=== PATIENT | female | born 1985 | race Hispanic/Latino ===

== ENCOUNTER 2017-07-14 22:56 | Inpatient (IN) | payer MEDICAID, OTHER, SELFPAY ==
[2017-07-14] MEDS ORDERED: Lidocaine 1% (PF) 30 ML VIAL ONE (23:19)
[2017-07-14] MEDS ORDERED: Oxytocin 10 UNITS/ML VIAL ONE (23:19)
[2017-07-14 23:58] VITALS: BMI 28.3
[2017-07-15] MEDS ORDERED: Ibuprofen 800 MG TAB PO SCH ×2 (00:45→06:00)
--- NOTE | 2017-07-15 00:52 | PDOC.LDHP ---
Labor and Delivery H&P Chief complaint: contractions, loss of fluid HPI: 31 yo at 38.3wks by 14wk ultrasound presents with contractions and SROM. Current gestational age (weeks): 38 (38.3) Due date: 07/24/17 Dating criteria: second trimester ultrasound (14 wks) Grav: 5 Para: 2 (2021) OB History Details: hx of 2 spontaneous abortions (2007, 2010); D&C X 2. hx of 2 (2014, 2011) 2014-precipitous delivery, 2nd degree laceration 2012: gestation diabetes, on glyburide, induced at term. Current complications: none Abnormal US findings: No Past Medical History: Prior hx of gestational diabetes Current medications: pre- vitamins, iron Previous surgical history: none Allergies/Adverse Reactions: Allergies Allergy/AdvReac Type Severity Reaction Status Date / Time No Known Allergies Allergy Verified 07/14/17 23:58 - Physical Exam Vital signs reviewed and normal: yes General: breathing through contractions Heart: RRR Lungs: CTAB Abdomen: gravid - Vaginal Exam cm dilated: 10 Effacement: 100% Station: 2+ - OB Labs Blood type: A RH: positive Antibody Screen: negative HIV: negative RPR: negative HEPSAg: negative 1 hour GCT: positive 3 hour GTT: negative GBS: unknown (completed on ) Urine drug screen: not done Rubella: immune Additional Labs: gonorrhea and chlamydia negative - Assessment L&D Assessment: term patient in labor - Plan Plan: admit to L&D
[2017-07-15] MEDS ORDERED: diphenhydrAMINE 25 MG CAP PO PRN (00:59)
[2017-07-15] MEDS ORDERED: Lanolin Ointment 7 GM TUBE TOP PRN (00:59)
[2017-07-15] MEDS ORDERED: Adacel (T-DAP) 0.5 ML VIAL IM ONE (00:59)
[2017-07-15] MEDS ORDERED: Milk Of Magnesia 30 ML UDCUP PO PRN (00:59)
[2017-07-15] MEDS ORDERED: Lidocaine 1% (PF) 30 ML VIAL SC PRN (00:59)
[2017-07-15] MEDS ORDERED: Ondansetron HCl/PF 4 MG/2 ML Vial IVP PRN ×2 (00:59)
[2017-07-15] MEDS ORDERED: Promethazine HCl 25 MG/ML VIAL IM PRN (00:59)
[2017-07-15] MEDS ORDERED: Bisacodyl 10 MG SUPP PR PRN (00:59)
[2017-07-15] MEDS ORDERED: Misoprostol 100 MCG TAB VAG SCH (01:00)
[2017-07-15] MEDS: Lactated Ringer's 1,000 ML IV SCH ×3 (01:31→16:20)
--- NOTE | 2017-07-15 01:52 | PDOC.OPDEL ---
OB Operative/Delivery Note Delivery Dr/Surgeon: Dr. Castro Assist: Attending: Dr. Pfeiffer Pre-Delivery Diagnosis: active labor Procedure/Post Delivery Dx: spontaneous vaginal delivery Weeks gestation: 38 (38.3) Anesthesia: none - Findings A Sex: male - 1 min: 9 - 5 min: 9 - Additional Findings/Plan Placenta delivered: spontaneous Repaired Obstetrical Laceration: 2nd degree (repaired with a 2-[address]) Estimated blood loss: 200 Compilations/Other Findings: Pre-op Diagnosis: 1. Term intrauterine in labor 2. Hx of gestation diabetes Post-op Diagnosis: 1. Term intrauterine , delivered 2. same as above Indications: A 31y/o female presents in active labor. Delivery Note: This is 31yo F @ 38.3wks who delivered a viable M/F infant at 2323. Following an uneventful antepartum course, a vigorous male was delivered over an intact perineum in the occipitoanterior position. Anterior Shoulder and then remainder of the body delivered. No nuchal cord. The head was held down and mouth and nares were bulb suctioned. Cord clamped and cut and cord blood collected. Placenta delivered intact with a 3 vessel cord noted. Fundal massage was performed and the fundus was firm. The cervix and vagina were inspected and a second degree laceration noted and repaired with Vicryl 2.0 CTin the usual fashion with good approximation and hemostasis after a local anesthetic of lidocaine was injected at site. went to nursery in good condition for routine care. Apgars were 9/9 at 1 & 5 minutes, respectively. Patient tolerated delivery well and went to after routine recovery/care. . Post delivery plan: routine recovery <Natty Cueva - Last Filed: 07/15/17 01:55> Attending Addendum - Attending Addendum Date/Time: 09/27/17 1536 I personally evaluated the patient and discussed indications for the procedure described by Dr. Rowe. I agree with the description of procedure as documented above with any addition or exceptions noted below: with 2nd degree lac, repaired, w/o complications. <Davide Pfeiffer - Last Filed: 09/27/17 15:37>
[2017-07-15 01:57] LABS: Mean Corpuscular HGB CONC 34.1 g/dL (32.0-36.0); Mean Corpuscular Hemoglobin 31.3 pg (27.0-31.0); Mean Corpuscular Volume 91.9 fl (81.0-99.0); Mean Platelet Volume 7.2 fL (7.4-10.4); Platelet Count 206 thou/uL (130-400); RBC Distribution Width 13.3 % (11.5-14.5); Red Blood Cell (RBC) Count 3.51 mill/uL (4.20-5.40); White Blood Cell (WBC) Count 13.9 thou/uL (4.8-10.8)
[2017-07-15] MEDS ORDERED: HYDROcodone/Acetaminophen 5/325 mg Tablet PO SCH (02:30)
[2017-07-15] MEDS: LR / Pitocin 40 units/1000 ml 1,000 ML IV SCH ×2 (02:31→02:54)
[2017-07-15 02:39] LABS: HBSAg Index 0.18 S/CO (0-0.99); Hep B Surf Ag Non-Reactive S/CO (NonReactive)
[2017-07-15 05:05] LABS: Syphilis Antibody Nonreactive (Nonreactive); Syphilis Antibody Index 0.05 S/CO (<1.00 Non-Reactive)
[2017-07-15] MEDS: Ibuprofen 800 MG TAB PO SCH ×2 (08:42→17:00)
[2017-07-15] MEDS: Docusate Calcium (SURFAK) 240 MG CAP PO SCH ×2 (08:43→22:15)
[2017-07-15] MEDS: Ferrous Sulfate 325 MG TAB PO SCH ×2 (08:43→16:25)
[2017-07-15] MEDS: Prenatal Vitamin 1 TAB PO SCH (08:43)
--- NOTE | 2017-07-15 09:30 | PDOC.PP ---
Post Progress Note Post Day #: 1 Subjective: Patient doing well this AM. Pain well controlled. PO intake tolerated: yes Flatus: no Ambulation: yes Vital Signs (12 hours) Temp Pulse Resp BP Pulse Ox 07/15/17 08:37 97.9 F 70 20 121/59 L 07/15/17 08:00 98.8 F 71 18 07/15/17 04:00 98.8 F 71 18 115/62 07/15/17 03:00 99.3 F 73 20 133/78 94 L 07/15/17 00:00 98.6 F 95 16 07/14/17 23:37 98.6 F 95 16 107/89 Weight Weight 68.039 kg - Physical Examination General: NAD Cardiovascular: no m/r/g, RRR Respiratory: clear to auscultation bilaterally, non-labored breathing Abdominal: + bowel sounds, lochia (wnl), no distention, appropriately TTP Extremities: negative homans (B) Skin: no rash Neurological: no gross focal deficits Psychiatric: A&Ox3, normal affect Result Diagrams: 07/15/17 01:47 Additional Labs: Post Labs Hep Bs Antigen Non-Reactive S/CO (NonReactive) 07/15/17 01:47 (1) Spontaneous vaginal delivery Code(s): O80 - ENCOUNTER FOR FULL-TERM UNCOMPLICATED DELIVERY Status: Acute Comment: 31 y/o -->3 at 38.3 wks that delivered via at 23:23 on 07/14. - Routine care - Uncertain of contraception method at this time - will see Dr. Ayala - Patient given cytotec x1 post delivery since she did not have IV access due to precipitous delivery - No complications (2) Second degree perineal laceration Code(s): O70.1 - SECOND DEGREE PERINEAL LACERATION DURING DELIVERY Status: Acute Comment: - s/p repair <Brenda Torres - Last Filed: 07/15/17 09:27> Vital Signs (12 hours) Temp Pulse Resp BP 07/15/17 18:23 98.9 F 73 20 106/58 L 07/15/17 15:10 98.0 F 71 20 07/15/17 12:02 98.0 F 71 20 119/62 07/15/17 12:00 98.0 F 71 20 01/05/18 08:37 97.9 F 70 20 121/59 L 07/15/17 08:00 98.8 F 71 18 Weight Weight 68.039 kg Result Diagrams: 07/15/17 01:47 Additional Labs: Post Labs Hep Bs Antigen Non-Reactive S/CO (NonReactive) 07/15/17 01:47 <Smitha Dewey - Last Filed: 07/15/17 19:55> Attending Addendum - Attending Addendum I personally evaluated the patient and discussed the management with Dr. Torres I agree with the History, Examination, Assessment and Plan documented above with any addition or exceptions noted below- Patient without complaints. Afebrile VSS. A/P: 1) PPD #1 s/p - continue routine care. Anticipate d/c home in AM. . <Smitha Dewey - Last Filed: 07/15/17 19:55>
[2017-07-15] MEDS: Acetaminophen 500 MG TAB PO PRN ×2 (10:33→19:55)
[2017-07-16] MEDS: Lactated Ringer's 1,000 ML IV SCH ×2 (01:14→09:09)
[2017-07-16] MEDS: Ibuprofen 800 MG TAB PO SCH ×2 (02:28→09:13)
--- NOTE | 2017-07-16 07:14 | PDOC.PP ---
Post Progress Note Post Day #: 2 Subjective: Patient had some moderate pain in back and perineum during the night but resolved with prn pain medications. PO intake tolerated: yes Flatus: yes (+BM) Ambulation: yes Vital Signs (12 hours) Temp Pulse Resp BP 07/15/17 19:45 98.7 F 64 20 114/63 Weight Weight 68.039 kg - Physical Examination General: NAD Cardiovascular: no m/r/g, RRR Respiratory: clear to auscultation bilaterally, non-labored breathing Abdominal: + bowel sounds, lochia (minimal), no distention, appropriately TTP Extremities: negative homans (B) Neurological: no gross focal deficits Psychiatric: A&Ox3, normal affect Result Diagrams: 07/15/17 01:47 Additional Labs: Post Labs Hep Bs Antigen Non-Reactive S/CO (NonReactive) 07/15/17 01:47 (1) Second degree perineal laceration Code(s): O70.1 - SECOND DEGREE PERINEAL LACERATION DURING DELIVERY Status: Acute Comment: - s/p repair (2) Spontaneous vaginal delivery Code(s): O80 - ENCOUNTER FOR FULL-TERM UNCOMPLICATED DELIVERY Status: Acute (3) Term of male Code(s): Z37.0 - SINGLE LIVE Status: Acute - Assessment/Plan 31 y/o -->3 at 38.3 wks that delivered via at 23:23 on 07/14/2017. -PPD #2. -Afebrile, VSS. -Still deciding on PP contraception method. -Infant to f/u with Dr. Ayala -S/p cytotec x1 after precipitous delivery and 2nd degree perineal repair; no current concerns. -Continue routine PP care and anticipate discharge sometime today. <Eliezer Méndez - Last Filed: 07/16/17 07:12> Vital Signs (12 hours) Temp Pulse Resp BP 07/16/17 08:36 98.3 F 64 20 110/65 07/16/17 07:50 98.7 F 64 20 Weight Weight 68.039 kg Result Diagrams: 07/15/17 01:47 Additional Labs: Post Labs Hep Bs Antigen Non-Reactive S/CO (NonReactive) 07/15/17 01:47 <Smitha Dewey - Last Filed: 07/16/17 11:43> Attending Addendum - Attending Addendum I personally evaluated the patient and discussed the management with Dr. Méndez I agree with the History, Examination, Assessment and Plan documented above with any addition or exceptions noted below- Patient without complaints. Ready to go home. Afebrile VSS. A/P: 1) PPD#2 s/p - plan to d/c home. <Smitha Dewey - Last Filed: 07/16/17 11:43>
[2017-07-16 08:37] VITALS: BP 110/65; TEMP 98.3
[2017-07-16] MEDS: Ferrous Sulfate 325 MG TAB PO SCH (09:09)
[2017-07-16] MEDS: Prenatal Vitamin 1 TAB PO SCH (09:12)
[2017-07-16] MEDS: Docusate Calcium (SURFAK) 240 MG CAP PO SCH (09:13)
[2017-07-16] MEDS: Acetaminophen 500 MG TAB PO PRN (11:14)
== END 2017-07-16 14:46 | disposition home or self-care (01) | DRG 775 ==
LOC: L&D/OP 22:56 → L&D 23:33 → 3SW 07-15 03:17
PROVIDERS: ADMIT Family Medicine; ATTEND Family Medicine
PROC: 10E0XZZ Delivery of Products of Conception, External Approach (ICD-10-PCS; principal; 2017-07-14)
PROC: 0KQM0ZZ Repair Perineum Muscle, Open Approach (ICD-10-PCS; 2017-07-14)
DX: O62.3 Precipitate labor (principal); O70.1 Second degree perineal laceration during delivery; Z3A.38 38 weeks gestation of pregnancy; Z37.0 Single live birth
CPT/HCPCS: 36415; 85027; 86780; 87340; 99285; J2001; J2590

== ENCOUNTER 2024-04-02 09:20 | Outpatient (CLI) | payer OTHER | END 2024-04-02 09:21 | disposition home or self-care (01) | LOC: BICRAD 09:20 | PROVIDERS: ATTEND Nurse Practitioner Family | DX: S39.012A Strain of muscle, fascia and tendon of lower back, initial encounter (principal); M47.816 Spondylosis without myelopathy or radiculopathy, lumbar region | CPT/HCPCS: 72100 ==